=== PATIENT | female | born 1960 | race Caucasian/White ===

== ENCOUNTER → 2020-11-19 10:40 | Outpatient (CLI) | payer BC, SELFPAY ==
--- NOTE | ~2020-11-19 | MM_ITS ---
EXAMINATION: MM screening edward BI w tequila HISTORY: Screening mammogram TECHNIQUE: Craniocaudal and mediolateral oblique 3-D tomosynthesis images were obtained and synthetic 2-D images were generated. CAD analysis was submitted and interpreted. COMPARISON: 07/29/2017, 02/21/2015, 01/12/2012 BREAST PARENCHYMAL COMPOSITION: The breasts are heterogeneously dense, which may obscure small masses . FINDINGS: Scattered benign-appearing calcifications are present. There is no evidence of suspicious m ass, calcification, or architectural distortion to suggest malignancy in either breast. There has bee n no suspicious interval change. IMPRESSION: 1. No mammographic evidence of malignancy. 2. Recommend routine screening mammography in one year. BI-RADS Category 2: Benign finding(s). Reviewed, dictated and finalized at location A.
== END ==
PROVIDERS: Visit Provider Nurse Practitioner
DX: Z12.31 Encounter for screening mammogram for malignant neoplasm of breast (principal)
CPT/HCPCS: 77063; 77067

== ENCOUNTER 2023-08-26 13:17 | Outpatient (CLI) | payer BC, SELFPAY ==
--- NOTE | ~2023-08-26 | MM_ITS ---
EXAMINATION: MM screening edward BI w tequila HISTORY: Screening TECHNIQUE: Craniocaudal and mediolateral oblique 3-D tomosynthesis images were obtained and synthetic 2-D images were generated. CAD analysis was submitted and interpreted. COMPARISON: Comparison to multiple prior studies sequentially, with oldest reviewed study dated 02/21. BREAST PARENCHYMAL COMPOSITION: Dense: The breasts are heterogeneously dense, which may obscure small masses FINDINGS: There is no evidence of suspicious mass, calcification, or architectural distortion to sugg est malignancy in either breast. There has been no suspicious interval change. IMPRESSION: 1. No mammographic evidence of malignancy. 2. Recommend routine screening mammography in one year. BI-RADS Category 1: Negative Reviewed, dictated and finalized at location A.
== END 2023-08-26 13:18 ==
LOC: MICIMG 13:20
PROVIDERS: Visit Provider Nurse Practitioner
DX: Z12.31 Encounter for screening mammogram for malignant neoplasm of breast (principal)
CPT/HCPCS: 77063; 77067

== ENCOUNTER 2023-10-15 10:54 | Outpatient (CLI) | payer BC, SELFPAY ==
--- NOTE | ~2023-10-15 | DEXA_ITS ---
Bone Density Report Name: MARGUERITE CHAPARRO Age: 63 Sex: Female Ethnicity: White Date of : 1960 Indication: postmenopausal; screening for osteoporosis; Referring Provider: Tori, Leela Study: Bone densitometry was performed. Exam Date: October 15, 2023 Accession number: [id number] Bone Density: Region BMD T-score Z-score Classification AP Spine (L1-L4) 0.983 -0.6 1.0 Normal Femoral Neck (Left) 0.690 -1.4 0.0 Osteopenia Total Hip (Left) 1.011 0.6 1.6 Normal Femoral Neck (Right) 0.648 -1.8 -0.4 Osteopenia Total Hip (Right) 0.976 0.3 1.4 Normal Total Hip Mean 0.994 0.5 1.5 Normal World Health Organization criteria for BMD impression classify patients as: Normal (T-score at or above -1.0), Osteopenia (T-score between -1.0 and -2.5), or Osteoporosis (T-score at or below -2.5). 10-year Fracture Risk(1): Major Osteoporotic Fracture 8.4% Hip Fracture 0.9% Reported Risk Factors: [place] (), Neck BMD=0.648, BMI=40.4 (1) FRAX(R) Version 3.08. Fracture probability calculated for an untreated patient. Fracture probability may be lower if the patient has received treatment. Previous Exams: Region Exam Age BMD T-score BMD Change BMD Change Date g/cm2 vs Baseline vs Previous AP Spine(L1-L4) 10/15/2023 63 0.983 -0.6 -0.063* -0.063* 07/29/2017 57 1.046 0.0 Total Hip(Left) 10/15/2023 63 1.011 0.6 -0.056* -0.056* 07/29/2017 57 1.066 1.0 Total Hip(Right) 10/15/2023 63 0.976 0.3 -0.034* -0.034* 07/29/2017 57 1.010 0.6 *Denotes significance at 95% confidence level, LSC for AP Spine = 0.022 g/cm2, LSC for Total Hip = 0.027 g/cm2 Clinical Information Provided by Patient: Has used the following medications: Vitamin D Patient maximum height was 64 Menopause Age: 53 No regular weight bearing exercise Drinks caffeinated beverages Onset of menses at age 14 Number of children 0 Impression: The patient has low bone mass, based on the Right Femoral Neck T-score. The patient has an estimated ten-year risk of hip fracture of 0.9% and an estimated ten-year risk of major fracture of 8.4%, based on the WHO FRAX algorithm. The BMD for the AP Spine(L1-L4) decreased, changing by -0.063 since the last DXA exam. The BMD for the Total Hip(Left) decreased, changing by -0.056 since the last DXA exam. The BMD for the Total Hip(Right) decreased, changing by -0.034 since the last DXA
== END 2023-10-15 10:55 ==
LOC: MICIMG 10:55
PROVIDERS: PCP Nurse Practitioner; Visit Provider Nurse Practitioner
DX: M85.89 Other specified disorders of bone density and structure, multiple sites (principal); Z78.0 Asymptomatic menopausal state; Z13.820 Encounter for screening for osteoporosis
CPT/HCPCS: 77080